=== PATIENT | male | born 1980 | race Two or more races ===

== ENCOUNTER 2016-08-08 14:26 | Emergency (ER) | payer MEDICAID ==
[~2016-08-08] VITALS: Ht 180.3 cm; Wt 97.5 kg
[2016-08-08 14:37] VITALS: BP 155/95
[2016-08-08] MEDS ORDERED: FLUORESCEIN SODIUM OPHTH 1 EA STRIP ONE (15:02)
[2016-08-08] MEDS ORDERED: TETRACAINE HCL/PF 0.5% UD 2 ML BOTTLE ONE (15:02)
[2016-08-08] MEDS ORDERED: FLUORESCEIN SODIUM OPHTH 1 EA STRIP OP ONE (15:30)
[2016-08-08] MEDS ORDERED: TETRACAINE HCL/PF 0.5% UD 2 ML BOTTLE OP ONE (15:30)
== END 2016-08-08 15:25 | disposition home or self-care (01) ==
LOC: ER 14:31
DX: T15.11XA Foreign body in conjunctival sac, right eye, initial encounter (principal); M10.9 Gout, unspecified; X58.XXXA Exposure to other specified factors, initial encounter; Y92.89 Other specified places as the place of occurrence of the external cause; Y93.89 Activity, other specified; Y99.8 Other external cause status
CPT/HCPCS: A4606; Z7610

== ENCOUNTER 2017-10-17 21:10 | Emergency (ER) | payer MEDICAID ==
[~2017-10-17] VITALS: Ht 175.3 cm; Wt 113.4 kg
[2017-10-17 21:19] VITALS: BP 125/55
== END 2017-10-17 21:56 | disposition home or self-care (01) ==
LOC: ER 21:12
DX: M10.9 Gout, unspecified (principal)
CPT/HCPCS: A4606; Z7610